=== PATIENT | male | born 1975 | race American Indian/Alaskan Native ===

== ENCOUNTER 2016-05-15 03:24 | Emergency (ER) | payer OTHER ==
[2016-05-15 03:32] VITALS: BP 116/72
== END 2016-05-15 15:10 | disposition left against medical advice (07) ==
LOC: ED 03:24
DX: R07.81 Pleurodynia (principal); M25.562 Pain in left knee; M25.511 Pain in right shoulder; F12.90 Cannabis use, unspecified, uncomplicated; V49.9XXA Car occupant (driver) (passenger) injured in unspecified traffic accident, initial encounter; W22.11XA Striking against or struck by driver side automobile airbag, initial encounter; Y93.89 Activity, other specified; Y99.9 Unspecified external cause status; Y92.410 Unspecified street and highway as the place of occurrence of the external cause; Z53.21 Procedure and treatment not carried out due to patient leaving prior to being seen by health care provider

== ENCOUNTER 2018-04-18 08:55 | Outpatient (CLI) | payer BC ==
[2018-04-18] MEDS ORDERED: XYLOCAINE TOPICAL 4% TP ONE (09:16)
[2018-04-18] MEDS ORDERED: SILVER NITRATE TP ONE (11:00)
== END 2018-04-18 08:56 | disposition home or self-care (01) ==
LOC: WOUND 08:55
PROVIDERS: ATTEND Surgery
DX: S40.852D Superficial foreign body of left upper arm, subsequent encounter (principal); L98.492 Non-pressure chronic ulcer of skin of other sites with fat layer exposed; F12.10 Cannabis abuse, uncomplicated; X94 Assault by rifle, shotgun and larger firearm discharge
CPT/HCPCS: 17250

== ENCOUNTER 2018-04-26 08:58 | Outpatient (CLI) | payer BC ==
[2018-04-26] MEDS ORDERED: XYLOCAINE TOPICAL 4% TP ONE (09:05)
== END 2018-04-26 08:59 | disposition home or self-care (01) ==
LOC: WOUND 08:58
PROVIDERS: ATTEND Surgery
DX: S40.852D Superficial foreign body of left upper arm, subsequent encounter (principal); S21.102D Unspecified open wound of left front wall of thorax without penetration into thoracic cavity, subsequent encounter; L98.492 Non-pressure chronic ulcer of skin of other sites with fat layer exposed; F12.90 Cannabis use, unspecified, uncomplicated; X94 Assault by rifle, shotgun and larger firearm discharge

== ENCOUNTER 2018-05-02 18:29 | Emergency (ER) | payer BC ==
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
== END 2018-05-02 22:32 | disposition home or self-care (01) ==
LOC: ED 18:29
CPT/HCPCS: 99282